=== PATIENT | male | born 1935 | race Caucasian/White ===

== ENCOUNTER 2020-12-02 10:50 | Emergency (ER) | payer MEDICARE, MEDICAID ==
[~2020-12-02] VITALS: Ht 175.3 cm; Wt 72.7 kg
[2020-12-02] MEDS ORDERED: morphine 4 MG/ML inj SYRINge IV PRN (11:05)
[2020-12-02] MEDS ORDERED: ondansetron/PF 4mg/2ml inj IV ONE (11:05)
[2020-12-02] MEDS ORDERED: normal saline 1000ML IV soln IVB ONE (11:05)
[2020-12-02 11:30] LABS: BASOPHILS % (AUTO) 0.3 % (0-1); EOSINOPHILS % (AUTO) 0.4 % (0-6); HEMATOCRIT 46.9 % (42.0-52.0); HEMOGLOBIN 15.6 g/dl (14.0-17.9); LYMPHOCYTES # (AUTO) 4.9 X10'3 (1.1-4.8); LYMPHOCYTES % (AUTO) 51.1 % (21-51); MEAN CORPUSCULAR HEMOGLOBIN 29.4 PG (27.0-31.0); MEAN CORPUSCULAR HGB CONC 33.3 g/dL (33.0-36.5); MEAN CORPUSCULAR VOLUME 88.2 FL (78-98); MEAN PLATELET VOLUME 7.4 FL (7.4-10.4); MONOCYTES # (AUTO) 0.4 X10'3 (0-0.9); MONOCYTES % (AUTO) 4.5 % (2-12); NEUTROPHILS # (AUTO) 4.2 X10'3 (1.8-7.7); NEUTROPHILS % (AUTO) 43.7 % (42-75); PLATELET COUNT 256 X10'3 (140-440); RED BLOOD COUNT 5.31 X10'6 (4.70-6.10); RED CELL DISTRIBUTION WIDTH 14.9 % (11.5-14.5); WHITE BLOOD COUNT 9.6 X10'3 (4.5-11.0)
[2020-12-02 11:45] LABS: ALANINE AMINOTRANSFERASE 19 U/L (12-78); ALBUMIN 3.2 G/DL (3.4-5.0); ALBUMIN/GLOBULIN RATIO 0.8 (1.1-1.5); ALKALINE PHOSPHATASE 39 IU/L (46-116); ANION GAP 8 (8-16); ASPARTATE AMINO TRANSFERASE 20 U/L (10-37); BILIRUBIN,TOTAL 0.7 MG/DL (0.1-1.0); BLOOD UREA NITROGEN 14 MG/DL (7-18); BUN/CREATININE RATIO 14.4 (5.4-32.0); CALCIUM 8.4 MG/DL (8.5-10.1); CHLORIDE 107 MMOL/L (99-107); CREATININE 0.97 MG/DL (0.60-1.10); POTASSIUM 4.1 MMOL/L (3.5-5.1); SODIUM 142 MMOL/L (135-145); TOTAL CARBON DIOXIDE 27.2 MMOL/L (24-32); TOTAL PROTEIN 7.2 G/DL (6.4-8.2); eGFR 73 ML/MIN
[2020-12-02 11:48] LABS: LIPASE < 50 U/L (73-393); TROPONIN I < 0.04 NG/ML (0.0-0.05)
[2020-12-02 11:49] VITALS: BP 126/71
[2020-12-02 11:49] LABS: GLUCOSE 139 MG/DL (70-104)
[2020-12-02 12:00] LABS: TOTAL CELLS COUNTED 100
[2020-12-02 12:01] LABS: LARGE PLATELETS FEW; PLATELET ESTIMATE NORMAL; SMUDGE CELLS 1+
[2020-12-02 12:08] LABS: CLARITY,URINE CLEAR (Clear); COLOR,URINE YELLOW (Yellow); GLUCOSE, URINE NEGATIVE (Neg); KETONES,URINE NEGATIVE (Neg); LEUKOCYTE ESTERASE ,URINE NEGATIVE (Neg); NITRITES, URINE NEGATIVE (Neg); OCCULT BLOOD,URINE NEGATIVE (Neg); PROTEIN,URINE TRACE mg/dl (Neg)
[2020-12-02 12:09] LABS: UA COLLECTION TYPE VOIDED
[2020-12-02] MEDS ORDERED: ONDA4TAB6 PO (12:13)
[2020-12-02 12:15] LABS: BACTERIA,URINE NONE SEEN /HPF (Neg); MUCUS STRANDS NONE SEEN /LPF (Neg); RBC,URINE NONE SEEN /HPF (0-2); SQUAMOUS EPITHELIAL CELL,UR NONE SEEN /LPF (FEW); WBC,URINE 0-4 /HPF (0-4)
[2020-12-02] MEDS ORDERED: pantoprazole 40 MG vial IV ONE (12:20)
[2020-12-02] MEDS ORDERED: famotidine/PF 10 mg/ml inj IV ONE (12:20)
--- NOTE | 2020-12-02 12:42 | NUR ---
NAJMA IN LAW VIRGIL [phone]. Addendum: 12/02/20 at 1244 by RISHABH CALL TO VIGRIL TO CHARGE ACCOUNT CLERK PATIENT.
== END 2020-12-02 13:29 | disposition home or self-care (01) ==
LOC: ER 10:50
DX: A08.4 Viral intestinal infection, unspecified (principal); Z79.899 Other long term (current) drug therapy; R42 Dizziness and giddiness
CPT/HCPCS: 70450; 74176; 80053; 81001; 83690; 84484; 85007; 85025; 93005; 96361; 96374; 96375; 99285; C9113; J2270; J2405; J3490; J7030